=== PATIENT | female | born 1990 | race Caucasian/White ===

== ENCOUNTER 2025-06-03 15:23 | Outpatient (CLI) | payer OTHER, SELFPAY ==
--- NOTE | ~2025-06-03 | US_ITS ---
EXAMINATION: US pelvic complete w TV INDICATION: Abnormal uterine bleeding Comparison:No prior studies for comparison. TECHNIQUE: Multiple transabdominal and endovaginal sonographic images of the pelvis performed. FINDINGS: The uterus measures 10.7 x 6.1 x 8.4 cm. The endometrial complex measures 13 mm. The right ovary measures 2.8 x 3.4 x 2.8 cm and the left ovary measures 2.8 x 1.6 x 1.9 cm. There ar e small follicles in each ovary. Normal doppler signal in both ovaries. There is no free fluid in the pelvis. There are no abnormal masses seen on either side. IMPRESSION: 1. Endometrial thickening measuring 1.3 cm. Reviewed, dictated and finalized at location A.
== END 2025-06-03 15:24 | disposition home or self-care (01) ==
LOC: GOSHIMG 15:23
PROVIDERS: PCP Obstetrics & Gynecology; Visit Provider Obstetrics & Gynecology
DX: N92.6 Irregular menstruation, unspecified (principal)
CPT/HCPCS: 76830; 76856

== ENCOUNTER 2025-06-28 12:35 | Outpatient (CLI) | payer OTHER, SELFPAY ==
--- NOTE | ~2025-06-28 | MR_ITS ---
EXAMINATION: MR brain IAC wo/w con DATE: 06/28/2025 13:22 INDICATION: Hearing loss, bilateral. TECHNIQUE: Magnetic resonance imaging (MRI) of the brain, brainstem, and internal auditory canals was performed without and with 20 mL MultiHance intravenous contrast. COMPARISON: Head CT 04/26/2019 FINDINGS: There is no intracranial hemorrhage, acute infarction, or abnormal intracranial mass lesion. The ventricles are normal in size. There is mild mucosal thickening in the paranasal sinuses. The orbits are normal. The mastoid air cells are normal. The internal auditory canals, inner ears, and tympanic cavities are normal. IMPRESSION: 1. Normal brain. Reviewed, dictated and finalized at location E. IMPRESSION: 1. Normal brain.
== END 2025-06-28 12:36 | disposition home or self-care (01) ==
LOC: MICIMG 12:36
PROVIDERS: PCP Otolaryngology; Visit Provider Otolaryngology
DX: H90.3 Sensorineural hearing loss, bilateral (principal)
CPT/HCPCS: 70553; A9577